=== PATIENT | female | born 1990 | race Caucasian/White ===

== ENCOUNTER 2018-03-14 17:56 | Inpatient (IN) | payer BC ==
[2018-03-14] MEDS: ACETAMINOPHEN 325 MG TAB PO ×2 (18:56→23:25)
[2018-03-14] MEDS: LACTATED RINGER'S 1,000 ML IV ×2 (19:02→19:58)
[2018-03-14 20:15] LABS: ADD MAN DIFF? NO
[2018-03-14 20:20] LABS: BASOPHILS % 0.1 % (0.0-2.0); EOSINOPHILS % 0.1 % (0.0-7.0); HEMOGLOBIN 11.5 g/dl (12.0-16.0); LYMPHOCYTES # 0.8 10^3/ul (0.8-2.9); MEAN CORPUSCULAR HEMOGLOBIN 28.3 pg (29.0-33.0); MEAN CORPUSCULAR HGB CONC 33.8 g/dl (32.0-37.0); MEAN CORPUSCULAR VOLUME 83.5 fl (82.0-101.0); MEAN PLATELET VOLUME 11.7 fl (7.4-10.4); MONOCYTE # 0.5 10^3/ul (0.3-0.9); MONOCYTES % 6.8 % (0.0-11.0); NEUTROPHIL # 6.2 10^3/ul (1.6-7.5); NEUTROPHILS % 82.7 % (39.0-77.0); PLATELET COUNT 135 10^3/UL (140-415); RED BLOOD COUNT 4.07 10^6/ul (4.20-5.40); RED CELL DISTRIBUTION WIDTH 14.3 % (11.5-14.5)
[2018-03-14 20:20] LABS: WHITE BLOOD COUNT 7.5 10^3/ul (4.8-10.8)
[2018-03-14 20:35] LABS: ADD UMIC YES; UR ASCORBIC ACID 40 mg/dL (NEGATIVE); UR BILIRUBIN (Dip) NEGATIVE (NEGATIVE); UR BLOOD (Dip) NEGATIVE (NEGATIVE); UR CLARITY SLIGHTLY CLOUDY (CLEAR); UR COLOR AMBER (YELLOW); UR GLUCOSE (Dip) NEGATIVE (NEGATIVE); UR KETONES (Dip) TRACE mg/dL (NEGATIVE); UR LEUKOCYTE ESTERASE (Dip) TRACE Leu/ul (NEGATIVE); UR MUCUS MANY /HPF (NONE SEEN); UR NITRITE (Dip) NEGATIVE (NEGATIVE); UR RBC 2 /HPF (0-5); UR SPECIFIC GRAVITY (Dip) 1.029 (1.003-1.030); UR SQUAMOUS EPITHELIAL CELL FEW /HPF (FEW); UR TOTAL PROTEIN (Dip) 1+ mg/dl (NEGATIVE); UR UROBILINOGEN (Dip) 2+ mg/dL (NEGATIVE); UR WBC 6 /HPF (0-5)
[2018-03-14 20:42] LABS: ALANINE AMINOTRANSFERASE 8 IU/L (13-69); ALBUMIN/GLOBULIN RATIO 1.29; ALKALINE PHOSPHATASE 135 IU/L (42-121); ANION GAP 10 (5-13); ASPARTATE AMINO TRANSFERASE 23 IU/L (15-46); BILIRUBIN,INDIRECT 0.8 mg/dl (0-1.1); BILIRUBIN,TOTAL 0.8 mg/dl (0.2-1.3); BLOOD UREA NITROGEN 6 mg/dl (7-20); CALCIUM 9.5 mg/dl (8.4-10.2); CARBON DIOXIDE 24 mmol/L (21-31); CHLORIDE 104 mmol/L (97-110); CREATININE 0.36 mg/dl (0.44-1.00); Estimated GFR > 60 mL/min (>60); GLUCOSE 86 mg/dl (70-220); POTASSIUM 3.8 mmol/L (3.5-5.1); SODIUM 138 mmol/L (135-144); TOTAL PROTEIN 7.1 g/dl (6.1-8.1)
[2018-03-14] MEDS: OSELTAMIVIR 75 MG CAP PO (21:24)
[2018-03-15] MEDS: LACTATED RINGER'S 1,000 ML IV (03:33)
[2018-03-15] MEDS ORDERED: LEVOTHYROXINE 100 MCG TAB PO (06:00)
[2018-03-15] MEDS: LEVOTHYROXINE 75 MCG TAB PO (06:10)
[2018-03-15] MEDS: OSELTAMIVIR 75 MG CAP PO (09:52)
[2018-03-15] MEDS: PRENATAL VITAMIN PO (09:52)
[2018-03-15] MEDS: AZITHROMYCIN 500MG/NS (PMX) 250 ML IVPB (10:43)
== END 2018-03-15 13:05 | disposition home or self-care (01) | DRG 833 ==
LOC: OBT 17:56 → L-D 17:56 → OBT 18:30 → L-D 18:30
DX: O26.893 Other specified pregnancy related conditions, third trimester (principal); Z3A.34 34 weeks gestation of pregnancy; J06.9 Acute upper respiratory infection, unspecified
CPT/HCPCS: 76815; 76817; 76818; 80053; 81001; 85025; 87086; 87400

== ENCOUNTER 2018-04-02 11:44 | Outpatient (CLI) | payer BC | END 2018-04-02 14:20 | disposition home or self-care (01) | LOC: OBT 11:44 → L-D 11:55 → OBT 14:20 | DX: O36.8130 Decreased fetal movements, third trimester, not applicable or unspecified (principal); Z3A.37 37 weeks gestation of pregnancy | CPT/HCPCS: 76815; 76818 ==

== ENCOUNTER 2018-04-06 10:29 | Outpatient (CLI) | payer BC | END 2018-04-06 12:10 | disposition home or self-care (01) | LOC: OBT 10:29 → L-D 10:29 → OBT 12:10 | DX: O36.8130 Decreased fetal movements, third trimester, not applicable or unspecified (principal); Z3A.38 38 weeks gestation of pregnancy | CPT/HCPCS: 76818 ==

== ENCOUNTER 2018-04-09 11:21 | Outpatient (CLI) | payer BC | END 2018-04-09 13:00 | disposition home or self-care (01) | LOC: OBT 11:21 → L-D 11:21 → OBT 13:00 | DX: O36.8130 Decreased fetal movements, third trimester, not applicable or unspecified (principal); Z3A.38 38 weeks gestation of pregnancy | CPT/HCPCS: 76818 ==

== ENCOUNTER 2018-04-13 11:40 | Inpatient (IN) | payer BC ==
[2018-04-13] MEDS ORDERED: IBUPROFEN 600 MG TAB PO (17:00)
[2018-04-13] MEDS ORDERED: METHYLERGONOVINE 0.2 MG INJ IM (17:00)
[2018-04-13] MEDS ORDERED: LIDOCAINE 1% (MPF) 30 ML INJ INJ (17:00)
[2018-04-13] MEDS ORDERED: MISOPROSTOL 200 MCG TAB PR (17:00)
[2018-04-13] MEDS ORDERED: CARBOPROST 250 MCG INJ IM (17:00)
[2018-04-13] MEDS ORDERED: BUTORPHANOL 2 MG INJ IV (17:00)
[2018-04-13] MEDS: LACTATED RINGER'S 1,000 ML IV ×2 (18:02→21:51)
[2018-04-13] MEDS: AMPICILLIN 2 GM/NS (PMX) 100 ML IV (18:08)
[2018-04-13 18:39] LABS: ADD MAN DIFF? NO
[2018-04-13 18:43] LABS: BASOPHILS % 0.1 % (0.0-2.0); EOSINOPHILS % 0.6 % (0.0-7.0); HEMATOCRIT 34.6 % (37.0-47.0); HEMOGLOBIN 11.5 g/dl (12.0-16.0); LYMPHOCYTES # 1.6 10^3/ul (0.8-2.9); LYMPHOCYTES % 23.4 % (15.0-51.0); MEAN CORPUSCULAR HEMOGLOBIN 27.5 pg (29.0-33.0); MEAN CORPUSCULAR HGB CONC 33.2 g/dl (32.0-37.0); MEAN CORPUSCULAR VOLUME 82.8 fl (82.0-101.0); MONOCYTE # 0.4 10^3/ul (0.3-0.9); MONOCYTES % 6.1 % (0.0-11.0); NEUTROPHIL # 4.8 10^3/ul (1.6-7.5); NEUTROPHILS % 69.5 % (39.0-77.0); PLATELET COUNT 144 10^3/UL (140-415); RED BLOOD COUNT 4.18 10^6/ul (4.20-5.40); RED CELL DISTRIBUTION WIDTH 13.9 % (11.5-14.5)
[2018-04-13 18:43] LABS: WHITE BLOOD COUNT 6.9 10^3/ul (4.8-10.8)
[2018-04-13 19:02] LABS: INR 1.06; PROTIME 13.9 Sec (11.9-14.9); PT RATIO 1.1
[2018-04-13 19:03] LABS: PARTIAL THROMBOPLASTIN TIME 30.3 Sec (23.0-35.0)
[2018-04-13 19:35] LABS: HEPATITIS B SURFACE ANTIGEN NEGATIVE (NEGATIVE)
[2018-04-13] MEDS: NA PHOSPHATE/BIPHOS 133 ML ENEMA PR (19:45)
[2018-04-13] MEDS: MISOPROSTOL 50 MCG CAPSULE PO (21:02)
[2018-04-13] MEDS: AMPICILLIN 1 GM/NS (PMX) 50 ML IV (21:50)
[2018-04-14] MEDS: AMPICILLIN 1 GM/NS (PMX) 50 ML IV ×6 (02:05→22:43)
[2018-04-14] MEDS: MISOPROSTOL 50 MCG CAPSULE PO ×4 (02:55→21:37)
[2018-04-14] MEDS: LEVOTHYROXINE 100 MCG TAB PO (06:13)
[2018-04-14] MEDS: LACTATED RINGER'S 1,000 ML IV ×2 (06:14→14:54)
[2018-04-14 21:08] LABS: RAPID PLASMA REAGIN NONREACTIVE (NR)
[2018-04-15] MEDS: LACTATED RINGER'S 1,000 ML IV ×4 (00:27→18:32)
[2018-04-15] MEDS: AMPICILLIN 1 GM/NS (PMX) 50 ML IV ×6 (02:30→21:00)
[2018-04-15] MEDS: MISOPROSTOL 50 MCG CAPSULE PO ×4 (03:30→20:52)
[2018-04-15] MEDS: LEVOTHYROXINE 100 MCG TAB PO (06:08)
[2018-04-15] MEDS ORDERED: OXYTOCIN 30 UNITS/LR 500 ML IV ×2 (10:30→23:00)
[2018-04-15] MEDS: OXYTOCIN 30 UNITS/LR 500 ML IV ×3 (10:36→21:14)
[2018-04-15] MEDS ORDERED: KETOROLAC 30 MG INJ IV (13:00)
[2018-04-15] MEDS ORDERED: ONDANSETRON 4 MG INJ IV (13:00)
[2018-04-15] MEDS ORDERED: HYDROmorphONE 0.5 MG/0.5 ML SYG IV ×2 (13:00)
[2018-04-15] MEDS ORDERED: DIPHENHYDRAMINE 50 MG INJ IV (13:00)
[2018-04-15] MEDS ORDERED: NALOXONE (0.4 MG/ML) INJ IV (13:00)
[2018-04-15] MEDS: ROPIVACAINE 0.2% 100ML BAG EPI (19:34)
[2018-04-15] MEDS: MINERAL OIL LIGHT 10 ML VIAL TOP (20:52)
[2018-04-15] MEDS ORDERED: ZOLPIDEM 5 MG TAB PO (23:00)
[2018-04-15] MEDS ORDERED: OXYCODONE/ASPIRIN (4.88/325) TAB PO ×2 (23:00)
[2018-04-15] MEDS ORDERED: METHYLERGONOVINE 0.2 MG INJ IM (23:00)
[2018-04-15] MEDS ORDERED: CARBOPROST 250 MCG INJ IM (23:00)
[2018-04-15] MEDS ORDERED: MISOPROSTOL 200 MCG TAB PR (23:00)
[2018-04-15] MEDS: IBUPROFEN 600 MG TAB PO (23:34)
[2018-04-16] MEDS: IBUPROFEN 600 MG TAB PO ×3 (05:44→18:00)
[2018-04-16] MEDS: LEVOTHYROXINE 75 MCG TAB PO (05:44)
[2018-04-16] MEDS ORDERED: LEVOTHYROXINE 175 MCG TAB PO (06:00)
[2018-04-16 08:05] LABS: ADD MAN DIFF? NO
[2018-04-16 08:16] LABS: WHITE BLOOD COUNT 9.4 10^3/ul (4.8-10.8)
[2018-04-16 08:16] LABS: BASOPHILS % 0.2 % (0.0-2.0); EOSINOPHILS % 0.2 % (0.0-7.0); HEMATOCRIT 32.6 % (37.0-47.0); HEMOGLOBIN 11.1 g/dl (12.0-16.0); LYMPHOCYTES # 1.8 10^3/ul (0.8-2.9); LYMPHOCYTES % 19.5 % (15.0-51.0); MEAN CORPUSCULAR HEMOGLOBIN 27.8 pg (29.0-33.0); MEAN CORPUSCULAR VOLUME 81.5 fl (82.0-101.0); MONOCYTE # 0.6 10^3/ul (0.3-0.9); MONOCYTES % 6.7 % (0.0-11.0); NEUTROPHIL # 6.9 10^3/ul (1.6-7.5); NEUTROPHILS % 72.9 % (39.0-77.0); PLATELET COUNT 152 10^3/UL (140-415); RED CELL DISTRIBUTION WIDTH 13.9 % (11.5-14.5)
[2018-04-16] MEDS: SENNA/DOCUSATE NA (8.6MG/50MG) TAB PO ×2 (08:54→21:00)
[2018-04-16] MEDS: LANOLIN HPA 1 PKT TOP (08:54)
[2018-04-16] MEDS: WITCH HAZEL/GLYCERIN PAD PR (08:54)
[2018-04-16] MEDS: BENZOCAINE 20% 56 ML SPRAY TOP (08:54)
[2018-04-16] MEDS: DIBUCAINE 1% 30 GM OINT TOP (16:26)
[2018-04-17] MEDS: LEVOTHYROXINE 75 MCG TAB PO (05:50)
[2018-04-17] MEDS: IBUPROFEN 600 MG TAB PO ×3 (05:52→12:00)
[2018-04-17] MEDS: SENNA/DOCUSATE NA (8.6MG/50MG) TAB PO (08:05)
[2018-04-17] MEDS: DIPHTH/TET/ACEL PERTUSS (ADULT) 0.5 ML VIAL IM* (08:37)
== END 2018-04-17 20:05 | disposition home or self-care (01) | DRG 807 ==
LOC: OBT 11:40 → PP1 04-15 22:33 → L-D 11:41 → OBT 16:35 → L-D 16:35
PROVIDERS: Obstetrics & Gynecology
PROC: 10E0XZZ Delivery of Products of Conception, External Approach (ICD-10-PCS; principal; 2018-04-15)
PROC: 3E033VJ Introduction of Other Hormone into Peripheral Vein, Percutaneous Approach (ICD-10-PCS; 2018-04-15)
DX: O69.81X0 Labor and delivery complicated by cord around neck, without compression, not applicable or unspecified (principal); Z37.0 Single live birth; Z3A.39 39 weeks gestation of pregnancy
CPT/HCPCS: 62319; 76815; 76818; 84443; 85025; 85610; 85730; 86592; 86900; 86901; 87340; 99464